=== PATIENT | male | born 1950 | race Caucasian/White ===

== ENCOUNTER 2020-04-10 16:10 | Emergency (ER) | payer MEDICARE, OTHER ==
--- NOTE | 2020-04-10 16:35 | ED Physician Documentation ---
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 But after lunch today, the says about an hour ago he became acutely dizzy. He has difficulty describing the dizziness. He says he had to get down on the ground and became very nauseous with it. That said he did not think it felt like a spinning sensation, nor did he feel off balance. More than anything else he said it was a little bit lightheaded but otherwise he was unable to describe it. At this point he is feeling mostly better, not dizzy. He still does not feel quite right so but has difficulty describing what that means. There is a question about whether his speech is normal, but the feels his speech is is at his baseline. He says that his speech is odd because he has lived in multiple foreign countries and picked up an accent combined with the [place]. Review of Systems Ten Systems: 10 systems reviewed and negative Constitutional: reports: Reviewed and negative Nose: reports: Reviewed and negative Throat: reports: Reviewed and negative Cardiac: reports: Reviewed and negative PD PAST MEDICAL HISTORY - Past Medical History Cardiovascular: None Respiratory: None Endocrine/Autoimmune: None GI: None : None HEENT: None Psych: None Musculoskeletal: None Derm: None - Past Surgical History General: Appendectomy Ortho: Other - Present Medications Home Medications: Ambulatory Orders Medication Instructions Recorded Confirmed Aspirin [Aspir-Low] 81 mg PO DAILY 08/26/15 08/29/15 Multivit-Min/Iron Fum/Folic AC 1 cap PO DAILY 08/26/15 08/29/15 [Dgzgz-Hcfgyug-Nuqyzicv Tablet] - Allergies Allergies/Adverse Reactions: Allergies Allergy/AdvReac Type Severity Reaction Status Date / Time No Known Drug Allergies Allergy Verified 08/26/15 13:53 PD ED PE NORMAL - Vitals Vital signs reviewed: Yes - General General: Alert and oriented X 3, No acute distress, Other (Slightly slow stuttering speech with an accent but no word finding difficulties or clear dysarthria.) - HEENT HEENT: PERRL, EOMI - Neck Neck: Supple, no meningeal sign, No bony TTP - Cardiac Cardiac: RRR, No murmur - Respiratory Respiratory: No respiratory distress, Clear bilaterally - Abdomen Abdomen: Normal bowel sounds, Soft, Non tender - Back Back: No CVA TTP, No spinal TTP - Neuro Neuro: Alert and oriented X 3, No motor deficit, No sensory deficit, Normal speech - Psych Psych: Normal mood, Normal affect NIHSS - Time Time: 16:30 - Level of Consciousness Level of consciousness: (0) Alert, Keenly responsive LOC Questions: (0) Answers both Q's correct LOC Commands: (0) Performs both correctly - Gaze Best Gaze: (0) Normal - Visual Visual: (0) No loss - Facial Palsy Facial Palsy: (0) Normal, symmetrical movement - Motor Arms (both separate) Motor Arm (right): (0) No drift Motor Arm (left): (0) No drift - Motor Legs (both separate) Motor Leg (right): (0) No drift Motor Leg (left): (0) No drift - Limb Ataxia Limb Ataxia: (0) Absent - Sensory Sensory: (0) Normal - Best Language Best Language: (0) No aphasia - Dysarthria Dysarthria: (0) Normal - Extinction and Inattention (formally neg Extinction and inattention: (0) No abnormality - Total Score/Results Total Score/Result: 0 Results - Vitals Vitals: Vital Signs - 24 hr 04/10/20 04/10/20 04/10/20 16:20 17:01 17:37 Temperature 36.8 C 36.7 C Heart Rate 87 86 65 Respiratory 15 16 17 Rate Blood Pressure 205/120 H 175/100 H 153/97 H O2 Saturation 100 100 100 04/10/20 18:00 Temperature Heart Rate 64 Respiratory 16 Rate Blood Pressure 147/99 H O2 Saturation 99 Oxygen O2 Source Room air - EKG (time done) 1627 Rate: Rate (enter#) (80) Rhythm: NSR [place]: Normal Intervals: Normal MD QRS: Normal Ischemia: Non specific changes Computer interpretation: Agree with computer - Labs Labs: Laboratory Tests 04/10/20 04/10/20 04/10/20 16:22 16:22 16:22 WBC 6.2 RBC 5.04 Hgb 15.5 Hct 46.6 MCV 92.5 MCH 30.8 MCHC 33.3 RDW 12.0 Plt Count 156 MPV 11.3 Neut # (Auto) 4.4 Lymph # (Auto) 1.1 L [place] # (Auto) 0.6 Eos # (Auto) 0.1 Baso # (Auto) 0.0 Absolute Nucleated RBC 0.00 Nucleated RBC % 0.0 PT 12.6 INR 1.1 Sodium 137 Potassium 3.8 Chloride 98 L Carbon Dioxide 29 Anion Gap 10.0 BUN 17 Creatinine 1.0 Estimated GFR (MDRD) 74 L Glucose 113 H Calcium 9.1 Magnesium 2.0 PD MEDICAL DECISION MAKING - ED course ED course: 69-year-old gentleman with [place]'s chorea presents with an acute dizzy episode that is hard to classify as vertigo or disequilibrium. He felt better without specific treatments. CTA of the head and neck were negative. Labs were unremarkable. He drank water here without nausea. Ambulated without difficulty or dizziness. [place] back to his baseline. Departure - Departure Disposition: Home, Self Care Clinical Impression: Dizziness Condition: Good Record reviewed to determine appropriate education?: Yes Instructions: ED Dizziness UKO Comments: The cause of the dizzy episode you had this afternoon is not completely clear, that said diagnostic testing including CT angiography of the head and neck and lab work were normal. Thankfully you are feeling better without specific treatment. Return if worse. Follow-up with your new primary care provider next week as scheduled.
[2020-04-10 16:43] LABS: BASOPHILS % (AUTO) 0.6 %; EOSINOPHILS # (AUTO) 0.1 10^3/uL (0.0-0.7); HGB - HEMOGLOBIN 15.5 g/dL (14.0-18.0); LYMPHOCYTES # (AUTO) 1.1 10^3/uL (1.5-3.5); LYMPHOCYTES % (AUTO) 17.2 %; MEAN CORPUSCULAR HEMOGLOBIN 30.8 pg (27.0-31.0); MEAN CORPUSCULAR HGB CONC 33.3 g/dL (32.0-36.0); MEAN CORPUSCULAR VOLUME 92.5 fL (80.0-94.0); MEAN PLATELET VOLUME 11.3 fL (7.4-11.4); MONOCYTES # (AUTO) 0.6 10^3/uL (0.0-1.0); MONOCYTES % (AUTO) 9.4 %; NEUTROPHILS # (AUTO) 4.4 10^3/uL (1.5-6.6); NEUTROPHILS % (AUTO) 71.6 %; PLT - PLATELET COUNT 156 10^3/uL (130-450); RED BLOOD COUNT 5.04 10^6/uL (4.70-6.10); WHITE BLOOD COUNT 6.2 x10^3/uL (4.8-10.8)
[2020-04-10] MEDS ORDERED: IOVERSOL 320 100 ML VIAL IVP ONE ×2 (16:49→17:17)
[2020-04-10 16:55] LABS: CALCIUM 9.1 mg/dL (8.5-10.3); INR 1.1 (0.8-1.2); PT - PROTHROMBIN TIME 12.6 secs (9.9-12.6)
--- NOTE | 2020-04-10 17:42 | CT Report ---
PROCEDURE: ANGIO HEAD W/WO INDICATIONS: vertigo CONTRAST: IV CONTRAST: Optiray 320 ml: 80 PO CONTRAST: *NO PO CONTRAST TECHNIQUE: Precontrast 4.5 mm thick angled axial sections acquired from the foramen magnum to the vertex. Afte r the administration of intravenous contrast, 1 mm thick sections acquired through the [place] of [place] is. Postcontrast 4.5 mm thick sections then re-acquired from the foramen magnum to the vertex. 3-di mensional barlsty-ytwxvmicc-fpcjqwmyom (MIP) and/or volume rendering reformats were acquired of the c entral intracranial vasculature. For radiation dose reduction, the following was used: automated ex posure control, adjustment of mA and/or kV according to patient size. COMPARISON: None FINDINGS: Image quality: Streak artifact at the skull bases.. Anterior circulation: Intracranial internal carotid arteries are normal in size and flow. The flow within the paired anterior cerebral arteries is normal and symmetric. The flow within the middle cer ebral arteries is normal and symmetric. The anterior communicating artery is seen. No aneurysms are seen. Posterior circulation: Visualized portions of the vertebral arteries demonstrate normal flow without evidence of high-grade stenosis, occlusion, or aneurysm. Incidental note of a diminutive right verte bral artery with the majority of the basilar artery supplied by the dominant left vertebral artery. I ncidental note of persistent circulation of the posterior cerebral arteries. Flow within the po sterior cerebral arteries is normal and symmetric. No aneurysms are seen. CSF spaces: Ventricles are normal in size and shape. Basal cisterns are patent. No extra-axial flu id collections. Brain: No midline shift. No intracranial bleeds or masses. [place]-white matter interface appears int act. Skull and face: Calvarium and facial bones appear intact, without suspicious lesions. Sinuses: Visualized sinuses and mastoids are clear. IMPRESSION: No acute intracranial abnormality. No significant stenosis, occlusion, aneurysm, or other vascular abnormality within the brain. Reviewed by: Eris Edge DO on 04/10/2020 4:41 PM [facility] Approved by: Eris Edge DO on 04/10/2020 4:41 PM [facility] Station ID: [id number]
--- NOTE | 2020-04-10 17:52 | CT Report ---
PROCEDURE: ANGIO NECK W INDICATIONS: vertigo CONTRAST: IV CONTRAST: Optiray 320 ml: 80 PO CONTRAST: *NO PO CONTRAST TECHNIQUE: After the administration of intravenous contrast, 1.5 mm axial sections acquired from the aortic arch to the [place] of [place]. Coronal 3-D maximum intensity projection (MIP) and/or volume rendering ref ormats were then performed. For radiation dose reduction, the following was used: automated exposur e control, adjustment of mA and/or kV according to patient size. COMPARISON: None. FINDINGS: Image quality: Excellent. Carotid system: The great vessels demonstrate a conventional anatomy as they arise from the aortic a [facility]. The origins of the common carotid arteries appear patent. The common carotid arteries demonstr ate normal calibers. The bifurcation regions appear normal bilaterally. The internal carotid arterie s demonstrate normal caliber and course. The carotid arteries are patent throughout their course wit hout evidence of high-grade stenosis, occlusion, aneurysm, or dissection. Posterior circulation: The origins of the vertebral arteries appear patent. Incidental note of an an terior course of the right vertebral artery with extension into the vertebral foramen at the level of C6. The right vertebral artery is diminutive in appearance. The left vertebral artery is dominant. T here is a normal basilar artery. Soft tissues: Visualized neck soft tissues demonstrate no suspicious abnormalities. The thyroid gla nd is normal in size. Bones: No suspicious bony lesions. Multilevel degenerative changes of the cervical spine. There is at least moderate intervertebral disc space loss at C4-C5, C5-C6, C6-C7, and C7-T1. No significant jose ny spinal canal stenosis. Multiple levels of mild to moderate neural foraminal stenosis. No acute fra cture. There is mild reversal of the normal cervical lordosis centered at C4-C5. IMPRESSION: No evidence of clinically significant stenosis, occlusion, dissection, or aneurysm. The estimate of stenosis included in the report of the imaging study was calculated using the NASCET method Reviewed by: Eris Edge DO on 04/10/2020 4:51 PM [facility] Approved by: Eris Edge DO on 04/10/2020 4:51 PM [facility] Station ID: [id number]
[2020-04-10 18:22] VITALS: BP 165/100
== END 2020-04-10 18:25 | disposition home or self-care (01) ==
LOC: ED 16:10
DX: R42 Dizziness and giddiness (principal); G10 Huntington's disease; Z79.82 Long term (current) use of aspirin
CPT/HCPCS: 36415; 70496; 70498; 80048; 83735; 85025; 85610; 93005; 99283; 99284; Q9967

== ENCOUNTER 2021-08-01 10:53 | Outpatient (CLI) | payer MEDICARE ==
[2021-08-01 14:13] LABS: BASOPHILS % (AUTO) 0.7 %; EOSINOPHILS % (AUTO) 0.7 %; HGB - HEMOGLOBIN 15.4 g/dL (14.0-18.0); LYMPHOCYTES # (AUTO) 1.2 10^3/uL (1.5-3.5); LYMPHOCYTES % (AUTO) 21.6 %; MEAN CORPUSCULAR HGB CONC 33.5 g/dL (32.0-36.0); MEAN CORPUSCULAR VOLUME 92.6 fL (80.0-94.0); MEAN PLATELET VOLUME 11.8 fL (7.4-11.4); MONOCYTES # (AUTO) 0.5 10^3/uL (0.0-1.0); MONOCYTES % (AUTO) 9.1 %; NEUTROPHILS # (AUTO) 3.7 10^3/uL (1.5-6.6); NEUTROPHILS % (AUTO) 67.7 %; PLT - PLATELET COUNT 191 10^3/uL (130-450); RED BLOOD COUNT 4.97 10^6/uL (4.70-6.10); RED CELL DISTRIBUTION WIDTH 12.1 % (12.0-15.0); WHITE BLOOD COUNT 5.5 x10^3/uL (4.8-10.8)
[2021-08-01 14:33] LABS: ALBUMIN 4.7 g/dL (3.2-5.5); ALBUMIN/GLOBULIN RATIO 1.5 (1.0-2.2); BILIRUBIN,TOTAL 1.2 mg/dL (0.2-1.0); CALCIUM 9.7 mg/dL (8.5-10.3); CREATININE 1.1 mg/dL (0.6-1.2); POTASSIUM 4.2 mmol/L (3.5-5.0); TOTAL PROTEIN 7.9 g/dL (6.7-8.2)
[2021-08-01 14:47] LABS: THYROID STIMULATING HORMONE 0.52 uIU/mL (0.34-5.60)
== END 2021-08-01 10:54 | disposition home or self-care (01) ==
LOC: LAB.S 10:53
PROVIDERS: ATTEND Nurse Practitioner Family
DX: I10 Essential (primary) hypertension (principal)
CPT/HCPCS: 36415; 80053; 84443; 85025

== ENCOUNTER 2021-08-13 14:58 | Emergency (ER) | payer MEDICARE ==
[2021-08-13] MEDS ORDERED: SODIUM CHLORIDE 0.9% 1,000 ML IV STA (15:18)
--- NOTE | 2021-08-13 15:25 | ED Physician Documentation ---
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 He is now coming to the emergency department with a chief complaint of a weeks long history of feeling lightheaded and dizzy and weight loss. Review of Systems Constitutional: reports: Weight Loss. denies: Fever Eyes: denies: Decreased vision Ears: denies: Ear pain Nose: denies: Congestion Throat: denies: Sore throat Cardiac: denies: Chest pain / pressure, Palpitations Respiratory: denies: Dyspnea, Cough GI: reports: Constipation. denies: Abdominal Pain, Nausea, Vomiting, Diarrhea : denies: Dysuria, Frequency Skin: denies: Rash Musculoskeletal: denies: Neck pain, Back pain, Extremity pain Neurologic: reports: Generalized weakness. denies: Focal weakness, Numbness, Difficulty speaking, Confused, Altered mental status, Headache, Head injury, LOC PD PAST MEDICAL HISTORY - Past Medical History Cardiovascular: None Respiratory: None Endocrine/Autoimmune: None GI: None : None HEENT: None Psych: None Musculoskeletal: None Derm: None - Past Surgical History Past Surgical History: Yes General: Appendectomy Ortho: Other - Present Medications Home Medications: Ambulatory Orders Medication Instructions Recorded Confirmed Aspirin [Aspir-Low] 81 mg PO DAILY 08/26/15 08/29/15 Multivit-Min/Iron Fum/Folic AC 1 cap PO DAILY 08/26/15 08/29/15 [Faiyw-Ehrjmgg-Xrsodikm Tablet] - Allergies Allergies/Adverse Reactions: Allergies Allergy/AdvReac Type Severity Reaction Status Date / Time No Known Drug Allergies Allergy Verified 08/13/21 15:14 - Social History Does the pt smoke?: No Smoking Status: Never smoker Does the pt drink ETOH?: No Does the pt have substance abuse?: No - Immunizations Immunizations are current?: Yes PD ED PE NORMAL - Vitals Vital signs reviewed: Yes (Hypertensive) - General General: Alert and oriented X 3, No acute distress, Well developed/nourished - HEENT HEENT: Atraumatic, PERRL, EOMI, Other (Dry mucous membranes) - Neck Neck: Supple, no meningeal sign, No bony TTP - Cardiac Cardiac: RRR, No murmur - Respiratory Respiratory: No respiratory distress, Clear bilaterally - Abdomen Abdomen: Soft, Non tender - Back Back: No CVA TTP, No spinal TTP - Derm Derm: Normal color, Warm and dry, No rash - Extremities Extremities: No deformity, No edema - Neuro Neuro: Alert and oriented X 3, 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, No motor deficit, No sensory deficit, Normal speech, Other (Choreiform movements are observed) Eye Opening: Spontaneous Motor: Obeys Commands Verbal: Oriented GCS Score: 15 - Psych Psych: Normal mood, Normal affect Results - Vitals Vitals: Oxygen O2 Source Room air - Labs Labs: Laboratory Tests 08/13/21 08/13/21 15:25 15:25 WBC 5.6 RBC 4.45 L Hgb 13.9 L Hct 40.5 L MCV 91.0 MCH 31.2 H MCHC 34.3 RDW 11.9 L Plt Count 166 MPV 10.4 Neut # (Auto) 4.4 Lymph # (Auto) 0.7 L [place] # (Auto) 0.5 Eos # (Auto) 0.0 Baso # (Auto) 0.0 Absolute Nucleated RBC 0.00 Nucleated RBC % 0.0 Sodium 134 L Potassium 4.2 Chloride 100 L Carbon Dioxide 28 Anion Gap 6.0 BUN 15 Creatinine 1.0 Estimated GFR (MDRD) 74 L Glucose 108 H Calcium 9.3 Total Bilirubin 0.5 AST 14 ALT 12 Alkaline Phosphatase 47 Total Protein 7.0 Albumin 4.3 Globulin 2.7 Albumin/Globulin Ratio 1.6 Lipase 57 H Procedures - IVC sono (time) 1520 Bedside IVC sono: IVC measures (cm) (0.82), IVC collapsed c insp (cm) (complete), Dehydration (est 2 liter deficit) PD MEDICAL DECISION MAKING - ED course Complexity details: reviewed old records, reviewed results, re-evaluated patient, considered differential, d/w patient, d/w family ED course: 70-year-old male with late onset [place]'s chorea has recently been diagnosed with constipation and this has been treated he now is presenting to the emergency department with lightheadedness and dizziness and he is found to be dehydrated on interrogation of the inferior vena cava. We are placing an intravenous line and giving the patient some saline. We will check his electrolytes and blood counts. Marked improvement after treatment. Departure - Departure Disposition: 01 Home, Self Care Clinical Impression: Dehydration Instructions: ED Dehydration Follow-Up: LISSA BUCHANAN ARNP [Primary Care Provider] - Discharge Date/Time: 08/13/21 16:19
[2021-08-13 15:30] LABS: BASOPHILS % (AUTO) 0.5 %; EOSINOPHILS % (AUTO) 0.2 %; HCT - HEMATOCRIT 40.5 % (42.0-52.0); HGB - HEMOGLOBIN 13.9 g/dL (14.0-18.0); LYMPHOCYTES # (AUTO) 0.7 10^3/uL (1.5-3.5); LYMPHOCYTES % (AUTO) 12.9 %; MEAN CORPUSCULAR HEMOGLOBIN 31.2 pg (27.0-31.0); MEAN CORPUSCULAR HGB CONC 34.3 g/dL (32.0-36.0); MEAN PLATELET VOLUME 10.4 fL (7.4-11.4); MONOCYTES # (AUTO) 0.5 10^3/uL (0.0-1.0); MONOCYTES % (AUTO) 8.2 %; NEUTROPHILS # (AUTO) 4.4 10^3/uL (1.5-6.6); NEUTROPHILS % (AUTO) 78.2 %; PLT - PLATELET COUNT 166 10^3/uL (130-450); RED BLOOD COUNT 4.45 10^6/uL (4.70-6.10); RED CELL DISTRIBUTION WIDTH 11.9 % (12.0-15.0); WHITE BLOOD COUNT 5.6 x10^3/uL (4.8-10.8)
[2021-08-13 15:43] LABS: ALBUMIN 4.3 g/dL (3.2-5.5); ALBUMIN/GLOBULIN RATIO 1.6 (1.0-2.2); BILIRUBIN,TOTAL 0.5 mg/dL (0.2-1.0); CALCIUM 9.3 mg/dL (8.5-10.3); POTASSIUM 4.2 mmol/L (3.5-5.0)
[2021-08-13 16:19] VITALS: BP 109/76
== END 2021-08-13 16:19 | disposition home or self-care (01) ==
LOC: ED 14:58
DX: E86.0 Dehydration (principal)
CPT/HCPCS: 36415; 80053; 83690; 85025; 99283

== ENCOUNTER 2021-08-17 03:19 | Emergency (ER) | payer MEDICARE ==
[2021-08-17 04:24] LABS: BILIRUBIN,URINE NEGATIVE (NEGATIVE); CLARITY,URINE CLEAR (CLEAR); GLUCOSE, URINE (UA) NEGATIVE (NEGATIVE); KETONES,URINE (UA) NEGATIVE (NEGATIVE); LEUKOCYTE ESTERASE, URINE NEGATIVE (NEGATIVE); NITRITE,URINE NEGATIVE (NEGATIVE); OCCULT BLOOD,URINE SMALL (NEGATIVE); PROTEIN,URINE NEGATIVE (NEGATIVE); UROBILINOGEN,URINE 0.2 (NORMAL) E.U./dL (NORMAL)
[2021-08-17 04:30] LABS: BACTERIA,URINE None Seen /HPF (None Seen); RBC,URINE 0-5 /HPF (0-5); SQUAMOUS EPITHELIAL CELL,UR NONE SEEN (<= Few); WBC,URINE 0-3 /HPF (0-3)
--- NOTE | 2021-08-17 04:54 | ED Physician Documentation ---
PD HPI MALE - Stated complaint Stated Complaint: MALE - Chief complaint Chief Complaint: Abd Pain - History obtained from History obtained from: Patient, Family - History of Present Illness Timing - onset: Today Timing - duration: Hours Timing - details: Abrupt onset, Still present Associated symptoms: Unable to urinate Similar symptoms before: Has not had sx before Recently seen: Emergency Dept - Additional information Additional information: Matias Haney is a 70-year-old male who has late onset Joseph's chorea and he was recently into the emergency department with complaints of lightheadedness and dizziness and he was found to be dehydrated on interrogation of his inferior vena cava and he was administered saline. He had marked improvement. He has been hydrating almost continuously on this morning he was unable to void. He came into the emergency department with this chief complaint. Despite hydration no urine came out. He did not have a chief complaint of pain. Review of Systems Constitutional: denies: Fever Ears: denies: Ear pain Nose: denies: Congestion Throat: denies: Sore throat Respiratory: denies: Cough GI: denies: Abdominal Pain, Nausea, Vomiting, Constipation, Diarrhea : reports: Unable to Void. denies: Dysuria, Frequency Skin: denies: Rash Musculoskeletal: denies: Neck pain, Back pain, Extremity pain PD PAST MEDICAL HISTORY - Past Medical History Cardiovascular: None Respiratory: None Endocrine/Autoimmune: None GI: None : None HEENT: None Psych: None Musculoskeletal: None Derm: None - Past Surgical History Past Surgical History: Yes General: Appendectomy Ortho: Other - Present Medications Home Medications: Ambulatory Orders Medication Instructions Recorded Confirmed Aspirin [Aspir-Low] 81 mg PO DAILY 08/26/15 08/29/15 Multivit-Min/Iron Fum/Folic AC 1 cap PO DAILY 08/26/15 08/29/15 [Swcol-Hbluziz-Jpdgzhvk Tablet] - Allergies Allergies/Adverse Reactions: Allergies Allergy/AdvReac Type Severity Reaction Status Date / Time No Known Drug Allergies Allergy Verified 08/13/21 15:14 - Social History Does the pt smoke?: No Smoking Status: Never smoker Does the pt drink ETOH?: No Does the pt have substance abuse?: No - Immunizations Immunizations are current?: Yes PD ED PE NORMAL - Vitals Vital signs reviewed: Yes (Hypertensive) - General General: Alert and oriented X 3, No acute distress, Well developed/nourished - HEENT HEENT: Atraumatic, PERRL, EOMI - Neck Neck: Supple, no meningeal sign - Respiratory Respiratory: No respiratory distress - Abdomen Abdomen: Normal bowel sounds, Soft, Non tender, Other (The bladder is firm and palpable suprapubic without significant tenderness) - Back Back: No CVA TTP, No spinal TTP - Derm Derm: Normal color, Warm and dry, No rash - Extremities Extremities: No deformity, No edema - Neuro Neuro: Alert and oriented X 3, 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, No motor deficit, No sensory deficit, Normal speech Motor: Obeys Commands Verbal: Oriented - Psych Psych: Normal mood, Normal affect Results - Vitals Vitals: Vital Signs - 24 hr 08/17/21 08/17/21 03:35 04:57 Temperature 36.6 C 36.7 C Heart Rate 54 L 79 Respiratory 19 17 Rate Blood Pressure 143/77 H 155/100 H O2 Saturation 98 98 Oxygen O2 Source Room air - Labs Labs: Laboratory Tests 08/17/21 04:15 Urine Color YELLOW Urine Clarity CLEAR Urine pH 6.0 Ur Specific [place] 1.010 Urine Protein NEGATIVE Urine Glucose (UA) NEGATIVE Urine Ketones NEGATIVE Urine Occult Blood SMALL H Urine Nitrite NEGATIVE Urine Bilirubin NEGATIVE Urine Urobilinogen 0.2 (NORMAL) Ur Leukocyte Esterase NEGATIVE Urine RBC 0-5 Urine WBC 0-3 Ur Squamous Epith Cells NONE SEEN Urine Bacteria None Seen Ur Microscopic Review INDICATED Urine Culture Comments NOT INDICATED Procedures - IVC sono (time) 0348 Bedside IVC sono: IVC measures (cm) (1.94), Euvolemia PD MEDICAL DECISION MAKING - ED course Complexity details: reviewed results, re-evaluated patient, considered differential, d/w patient ED course: 70-year-old male with acute urinary retention of only 700 mL. He is not on any new medication. He did not have any significant pain associated with this and has a negative urinalysis. I am uncertain why the patient was unable to void we placed Lance catheter and emptied the bladder. I suspect the patient will be able to void without difficulty and I have indicated to the patient that if he has difficulty again he will need to return to leave the catheter in place. Departure - Departure Disposition: 01 Home, Self Care Clinical Impression: Acute urinary retention Condition: Stable Instructions: ED Retention Urinary Male Follow-Up: LISSA BUCHANAN ARNP [Physician No Access] - Comments: Matias, this morning you had about 700ml in your bladder and we have drained the bladder. We are expecting that you will be able to urinate normally this morning without the catheter. There is a chance that you will not be able to and if this happens return to the ED and we will have to leave the catheter in place for about a week. It looks like you are doing a good job at hydrating and my recommendation is to stop drinking water at about 9pm so that you are not up in the middle of the night to urinate. Discharge Date/Time: 08/17/21 05:12
[2021-08-17 05:04] VITALS: BP 155/100
== END 2021-08-17 05:12 | disposition home or self-care (01) ==
LOC: ED 03:19
DX: R33.9 Retention of urine, unspecified (principal)
CPT/HCPCS: 81001; 81003; 87086; 99282; 99283

== ENCOUNTER 2023-10-02 13:49 | Outpatient (CLI) | payer MEDICARE | END 2023-10-02 23:59 | disposition critical access hospital (66) | LOC: EMS 13:49 | DX: R33.9 Retention of urine, unspecified (principal) | CPT/HCPCS: A0425; A0429 ==

== ENCOUNTER 2023-10-02 14:27 | Emergency (ER) | payer MEDICARE ==
--- NOTE | 2023-10-02 14:37 | ED Physician Documentation ---
PD HPI MALE - Stated complaint Stated Complaint: - Chief complaint Chief Complaint: Abd Pain - History obtained from History obtained from: Patient - History of Present Illness Timing - onset: How many days ago (The patient has noticed hesitancy with urine and small amounts out over several days at least. Weak stream for longer term. Now today being unable to urinate and having feeling of bladder fullness and discomfort. No hematuria nor dysuria.) Timing - details: Gradual onset, Still present (worse the past day in particular.), Waxing and waning Associated symptoms: Urinary frequency, Unable to urinate. No: Dysuria, Hematuria, Back pain PD HPI MALE CONTRIB FACTORS: Other (He denies any recent change in medicines. No recent cold or flu. No jpyo-[id number] cough medicines etc. Has not had hematuria nor dysuria.) Similar symptoms before: No diagnosis (did have episode of urinary retention last year treated short term with catheter.) PD PAST MEDICAL HISTORY - Past Medical History Past Medical History: Yes Cardiovascular: Hypertension Respiratory: None Endocrine/Autoimmune: None GI: None : None HEENT: None Psych: None Musculoskeletal: None Derm: None Other Past Medical History: [place] - Past Surgical History Past Surgical History: No General: Appendectomy Ortho: Other - Present Medications Home Medications: Ambulatory Orders Medication Instructions Recorded Confirmed Aspirin [Aspir-Low] 81 mg PO DAILY 08/26/15 08/29/15 Multivit-Min/Iron Fum/Folic AC 1 cap PO DAILY 08/26/15 08/29/15 [Hdswx-Alzdeku-Rwccjxgw Tablet] Tamsulosin [Flomax] 0.4 mg PO DAILY #20 cap 10/02/23 - Allergies Allergies/Adverse Reactions: Allergies Allergy/AdvReac Type Severity Reaction Status Date / Time No Known Drug Allergies Allergy Verified 10/02/23 14:36 - Social History Does the pt smoke?: No Smoking Status: Never smoker Does the pt drink ETOH?: No Does the pt have substance abuse?: No - Immunizations Immunizations are current?: Yes - POLST Patient has POLST: No PD ED PE NORMAL - Vitals Vital signs reviewed: Yes - General General: Alert and oriented X 3, Well developed/nourished - Abdomen Abdomen: Normal bowel sounds, Soft, Other (fullness in suprapubic area, tender. Upper abd not tender. ) - Derm Derm: Normal color, Warm and dry Results - Vitals Vitals: Vital Signs - 24 hr 10/02/23 14:30 Temperature 37.2 C Heart Rate 81 Respiratory 23 Rate Blood Pressure 130/88 H O2 Saturation 98 Oxygen O2 Source Room air - Labs Labs: Laboratory Tests 10/02/23 15:19 Urine Color YELLOW Urine Clarity CLEAR Urine pH 7.0 Ur Specific [place] 1.010 Urine Protein NEGATIVE Urine Glucose (UA) NEGATIVE Urine Ketones NEGATIVE Urine Occult Blood SMALL H Urine Nitrite NEGATIVE Urine Bilirubin NEGATIVE Urine Urobilinogen 0.2 (NORMAL) Ur Leukocyte Esterase NEGATIVE Urine RBC 0-5 Urine WBC 0-3 Ur Squamous Epith Cells NONE SEEN Urine Bacteria None Seen Ur Microscopic Review INDICATED Urine Culture Comments NOT INDICATED PD Medical Decision Making - ED course Complexity details: reviewed results (The urine is clear with only trace of blood and no signs of infection. He did have a liter of fluid in the bladder upon placement of a Lance catheter. I would presume he has chronic urinary retention with this amount given his moderate level of discomfort with that amount. ), considered differential (Patient with difficulty urination for the last day or 2 with having to "force it out". Unable to urinate the last 5 or 6 hours and feeling bladder fullness and discomfort. No dysuria or prior. No change in medicines. No illness otherwise.), d/w patient ED course: I did discuss with the patient and his grandson I believe the need for keeping the catheter in in order to have good bladder drainage and regain muscle tone in the bladder muscles as well as the ability to impact on prostate enlargement w ith some antiprostate medication. They should call the urology office for follow-up appointment for next week at which point they can discuss removing of the catheter versus bladder training or other courses. Departure - Departure Disposition: 01 Home, Self Care Clinical Impression: Acute on chronic urinary retention Condition: Stable Record reviewed to determine appropriate education?: Yes Instructions: ED Catheter Care Lance, ED Retention Urinary Male Follow-Up: Fran Sanches MD [Provider Admit Priv/Credential] - Prescriptions: Tamsulosin [Flomax] 0.4 mg PO DAILY #20 cap Comments: Given the amount of urine in her bladder at about 1000 mL I would anticipate that you have had some moderate urine retention exacerbated now. With that much urine in the bladder, it is likely you have had some overstretching of the muscles in the do need time to come more into tone and not be overstretched. As such we typically would leave the catheter in place for a week or so to allow the bladder to on stretch and the muscles develop a better tone to more successfully be able to urinate when the catheter is out. In addition presuming the prostate is being part of the issue, I would start a prostate shrinking medicine daily for the next few weeks. I provided the urologist office phone number. Call them today or tomorrow to set an appointment for presumably next week at which point we will recheck and start a plan for better bladder drainage and decide on removing the catheter etc. There is no signs of infection to your urine. Continue your other usual medicines. Forms: PCP List
[2023-10-02] MEDS: LIDOCAINE 2% URO-JET 5 ML SYRINGE UR STA (15:11)
[2023-10-02 15:45] LABS: BILIRUBIN,URINE NEGATIVE (NEGATIVE); GLUCOSE, URINE (UA) NEGATIVE (NEGATIVE); KETONES,URINE (UA) NEGATIVE (NEGATIVE); LEUKOCYTE ESTERASE, URINE NEGATIVE (NEGATIVE); NITRITE,URINE NEGATIVE (NEGATIVE); OCCULT BLOOD,URINE SMALL (NEGATIVE); PROTEIN,URINE NEGATIVE (NEGATIVE); UROBILINOGEN,URINE 0.2 (NORMAL) E.U./dL (NORMAL)
[2023-10-02 15:53] LABS: CLARITY,URINE CLEAR (CLEAR)
[2023-10-02 16:16] LABS: RBC,URINE 0-5 /HPF (0-5); WBC,URINE 0-3 /HPF (0-3)
[2023-10-02 16:17] LABS: BACTERIA,URINE None Seen /HPF (None Seen); SQUAMOUS EPITHELIAL CELL,UR NONE SEEN (<= Few)
[2023-10-02] MEDS: TAMSULOSIN 0.4 MG CAPSULE PO STA (16:25)
[2023-10-02 16:37] VITALS: BP 126/105; O2SAT 100
== END 2023-10-02 16:40 | disposition home or self-care (01) ==
LOC: EDUNIT# → ED 14:27
DX: R33.9 Retention of urine, unspecified (principal)
CPT/HCPCS: 51702; 51798; 81001; 99284; A9270; 81003; 87086

== ENCOUNTER 2023-10-12 15:28 | Emergency (ER) | payer MEDICARE ==
--- NOTE | 2023-10-12 15:45 | ED Physician Documentation ---
PD HPI ABD PAIN - Stated complaint Stated Complaint: GI - Chief complaint Chief Complaint: Abd Pain - History obtained from History obtained from: Patient - History of Present Illness Timing - onset: Today Timing - details: Gradual onset (he had feeling of rectal fullness and will use dulcolax suppos to stimulate stool out. Does this usually daily, due to poor pelvic muscle strength. id not get stool out today with that, and feeling uncomfortable at rectal area. Here for assistance.) Quality: Cramping, Aching PD PAST MEDICAL HISTORY - Past Medical History Past Medical History: Yes Cardiovascular: Hypertension Respiratory: None Endocrine/Autoimmune: None GI: None : None HEENT: None Psych: None Musculoskeletal: None Derm: None - Past Surgical History Past Surgical History: Yes General: Appendectomy Ortho: Other - Present Medications Home Medications: Ambulatory Orders Medication Instructions Recorded Confirmed Aspirin [Aspir-Low] 81 mg PO DAILY 08/26/15 10/12/23 Multivit-Min/Iron Fum/Folic AC 1 cap PO DAILY 08/26/15 10/12/23 [Kpnnk-Kbwdwwv-Mhjfnxnn Tablet] Tamsulosin [Flomax] 0.4 mg PO DAILY #20 cap 10/02/23 10/12/23 Docusate Sodium 100Mg Capsule 100 mg PO DAILY #20 cap 10/12/23 [Colace 100Mg Capsule] Tetrabenazine [Xenazine] 1 tab PO DAILY 10/12/23 10/12/23 - Allergies Allergies/Adverse Reactions: Allergies Allergy/AdvReac Type Severity Reaction Status Date / Time No Known Drug Allergies Allergy Verified 10/12/23 15:38 - Social History Does the pt smoke?: No Smoking Status: Never smoker Does the pt drink ETOH?: No Does the pt have substance abuse?: No - Immunizations Immunizations are current?: Yes - POLST Patient has POLST: No PD ED PE NORMAL - General General: Alert and oriented X 3, Well developed/nourished - Rectal Rectal: Other (soft stool in vault. not feeling impacted. lower muscle tone. ) - Derm Derm: Normal color, Warm and dry - Neuro Neuro: Alert and oriented X 3 Results - Vitals Vitals: Oxygen O2 Source Room air PD Medical Decision Making - ED course Complexity details: re-evaluated patient (no abd pain nore tenderness. Some stool in vault on exam but not impacted. Mainly needing stimulation to enhance peristalsis due to decreased msucle strength. Given enema with good stool output. Feeling better. No indication for testing/imaging. ), considered differential (he has poor rectal and pelvic muscle tone so needs daily dulcoax suppos to creat peristaltic movement. Could maybe benefit from stool softener too. He does fiber for bulk. Had fullness of rectum after the suppos. ), d/w patient Departure - Departure Disposition: Home, Self Care Clinical Impression: Obstipation, Rectal fullness due to feces Condition: Stable Record reviewed to determine appropriate education?: Yes Prescriptions: Docusate Sodium 100Mg Capsule [Colace 100Mg Capsule] 100 mg PO DAILY #20 cap Comments: Continue usual medications. You could try adding a docusate daily or every other day to see if it allows for this your stool that comes out more easily. However if the difficulty is the muscle tone at the rectum, then the continued use of the daily Dulcolax suppository may be the most successful as you are doing. Return as needed. Follow-up with urology this coming week as planned. Forms: PCP List Discharge Date/Time: 10/12/23 17:22
[2023-10-12] MEDS: SALINE ENEMA 133 ML BOTTLE RC STA (16:08)
[2023-10-12 17:33] VITALS: BP 134/84; O2SAT 100
== END 2023-10-12 17:22 | disposition home or self-care (01) ==
LOC: ED 15:28
DX: K59.00 Constipation, unspecified (principal); I10 Essential (primary) hypertension
CPT/HCPCS: 99283; A9270

== ENCOUNTER 2023-10-29 15:57 | Emergency (ER) | payer MEDICARE ==
[2023-10-29 16:26] VITALS: O2SAT 99
--- NOTE | 2023-10-29 17:20 | ED Physician Documentation ---
History of Present Illness - Stated complaint Stated Complaint: - Chief complaint Chief Complaint: Abd Pain - History obtained from History obtained from: Patient - Additonal information Additional information: Patient is a 72-year-old male past medical history of Parkinson's presents to the emergency department with constipation x 1 day. Patient was seen here on 10/11 for similar symptoms started on docusate suppositories. He notes this was working well until today when he could not have a bowel movement. Patient comes in with nurse and she notes he tried to have a bowel movement for 2 hours with no success. Patient denies any difficulty eating drinking nausea vomiting or abdominal pain. Patient also reporting decreased urination. He has had to be straight cathed twice this week last 2 weeks for urinary retention and has been started on Flomax. Patient notes he does not feel any dysuria no changes in color or foul-smelling urine today. PD PAST MEDICAL HISTORY - Past Medical History Past Medical History: Yes Cardiovascular: Hypertension Respiratory: None Endocrine/Autoimmune: None GI: None : None HEENT: None Psych: None Musculoskeletal: None Derm: None - Past Surgical History Past Surgical History: Yes General: Appendectomy Ortho: Other - Present Medications Home Medications: Ambulatory Orders Medication Instructions Recorded Confirmed Aspirin [Aspir-Low] 81 mg PO DAILY 08/26/15 10/12/23 Multivit-Min/Iron Fum/Folic AC 1 cap PO DAILY 08/26/15 10/12/23 [Tnasd-Rnvxzwj-Ximypzfp Tablet] Tamsulosin [Flomax] 0.4 mg PO DAILY #20 cap 10/02/23 10/12/23 Docusate Sodium 100Mg Capsule 100 mg PO DAILY #20 cap 10/12/23 [Colace 100Mg Capsule] Tetrabenazine [Xenazine] 1 tab PO DAILY 10/12/23 10/12/23 cephALEXin [Keflex] 500 mg PO BID 5 Days #10 cap 10/29/23 polyethylene glycoL 3350 [Miralax] 17 gm PO DAILY 10 Days packet 10/29/23 polyethylene glycoL 3350(BULK) 17 gm PO DAILY PRN #1 each 10/29/23 [Miralax] - Allergies Allergies/Adverse Reactions: Allergies Allergy/AdvReac Type Severity Reaction Status Date / Time No Known Drug Allergies Allergy Verified 10/29/23 16:46 - Social History Does the pt smoke?: No Smoking Status: Never smoker Does the pt drink ETOH?: No Does the pt have substance abuse?: No - Immunizations Immunizations are current?: Yes - POLST Patient has POLST: No PD ED PE NORMAL - Vitals Vital signs reviewed: Yes - General General: Alert and oriented X 3 - HEENT HEENT: Atraumatic - Neck Neck: Supple, no meningeal sign - Cardiac Cardiac: RRR, No murmur, No gallop, No rub - Respiratory Respiratory: No respiratory distress - Abdomen Abdomen: Normal bowel sounds, Soft, Non tender, Non distended, Other (No acute surgical abdomen) - Back Back: No CVA TTP - Derm Derm: Normal color, No rash - Extremities Extremities: No deformity Results - Vitals Vitals: Vital Signs - 24 hr 10/29/23 16:17 Temperature 36.8 C Heart Rate 118 H Respiratory 18 Rate Blood Pressure 167/119 H O2 Saturation 99 Oxygen O2 Source Room air - Labs Labs: Laboratory Tests 10/29/23 17:59 Urine Color LIGHT YELLOW Urine Clarity HAZY Urine pH 5.5 Ur Specific [place] <=1.005 Urine Protein NEGATIVE Urine Glucose (UA) NEGATIVE Urine Ketones NEGATIVE Urine Occult Blood MODERATE H Urine Nitrite NEGATIVE Urine Bilirubin NEGATIVE Urine Urobilinogen 0.2 (NORMAL) Ur Leukocyte Esterase SMALL H Urine RBC 6-10 H Urine WBC 11-25 H Ur Squamous Epith Cells NONE SEEN Urine Bacteria Rare Ur Microscopic Review INDICATED Urine Culture Comments INDICATED PD Medical Decision Making - ED course Complexity details: reviewed old records, reviewed results ED course: Patient is a 72-year-old male presenting to the emergency department with left distal ring finger laceration. Injury occurred when he was using a table saw shortly prior to arrival. He is on Xarelto for history of atrial fibrillation. Patient denies any numbness or tingling to the distal finger on examination. He has full range of motion at DIP and PIP joints. Good capillary refill strength intact 5 out of 5. Additional small abrasion noted to the distal phalanx of third finger no active bleeding on examination. X-ray obtained given irregular and depth noted to the wound. Patient's x-ray shows no signs of foreign body no signs of fracture to finger. See procedure note above. Patient received 7 sutures and small amount of Dermabond over area of abrasion with persistent bleeding. Patient tolerated this well he was splinted here in the emergency department. Patient instructed to have sutures removed in 14 days and to evaluate for any redness swelling warmth fevers discharge. Directed patient to evaluate for any numbness or tingling as well as this is a sign of injury to the tendon. Patient will leave the splint on and rewrap wound in 24 hours. Patient given numbers for orthopedics hand for follow-up as well as his PCP for suture removal and evaluation of good wound healing. Patient understands and is agreeable with this plan. Departure - Departure Disposition: 01 Home, Self Care Clinical Impression: UTI (urinary tract infection), Constipation, Acute UTI Condition: Good Instructions: ED UTI Cystitis Male Follow-Up: eLela Erwin ARNP [Primary Care Provider] - Comments: Workup here in the emergency department with reassuring symptoms most likely secondary to constipation continue with docusate and add on MiraLAX to help with bowel movements. Symptoms most likely secondary to weak muscles. Drink lots of fluids at home. Additionally you have signs of a UTI started on antibiotics as prescribed but follow-up with your urologist for further evaluation in the outpatient setting. Return to the emergency department with worsening abdominal pain back pain fevers nausea or vomiting. Forms: PCP List
[2023-10-29] MEDS: SOAP SUDS ENEMA 1 EACH RC ONE (18:03)
[2023-10-29 18:06] LABS: BILIRUBIN,URINE NEGATIVE (NEGATIVE); GLUCOSE, URINE (UA) NEGATIVE (NEGATIVE); KETONES,URINE (UA) NEGATIVE (NEGATIVE); LEUKOCYTE ESTERASE, URINE SMALL (NEGATIVE); NITRITE,URINE NEGATIVE (NEGATIVE); OCCULT BLOOD,URINE MODERATE (NEGATIVE); PH,URINE 5.5 PH (5.0-7.5); PROTEIN,URINE NEGATIVE (NEGATIVE); UROBILINOGEN,URINE 0.2 (NORMAL) E.U./dL (NORMAL)
[2023-10-29 18:10] LABS: CLARITY,URINE HAZY (CLEAR)
[2023-10-29 18:29] LABS: BACTERIA,URINE Rare /HPF (None Seen); SQUAMOUS EPITHELIAL CELL,UR NONE SEEN (<= Few)
[2023-10-29 20:00] VITALS: BP 176/99
== END 2023-10-29 19:51 | disposition home or self-care (01) ==
LOC: ED 15:57
DX: K59.00 Constipation, unspecified (principal); N39.0 Urinary tract infection, site not specified; G10 Huntington's disease
CPT/HCPCS: 81001; 87086; 99282; 99283; A9270; 81003

== ENCOUNTER 2023-11-07 14:33 | Emergency (ER) | payer MEDICARE ==
[2023-11-07 14:48] VITALS: BP 140/79; O2SAT 96
--- NOTE | 2023-11-07 16:45 | ED Physician Documentation ---
History of Present Illness - Stated complaint Stated Complaint: CONSTIPATION - Chief complaint Chief Complaint: General - Additonal information Additional information: 73-year-old male presents emergency department with concerns of constipation. Patient has advanced Parkinson's disease and struggles with constipation. Patient says he took his regular prescribed laxative and suppository today as scheduled but was concerned that he had not had a bowel movement in 4 hours. He was able to successfully have a bowel movement while waiting in the waiting room to be seen by primary care provider and is feeling significantly better no abdo favian pain no nausea vomiting. Prior to today last bowel movement was yesterday. PD PAST MEDICAL HISTORY - Past Medical History Past Medical History: Yes Cardiovascular: Hypertension Respiratory: None Endocrine/Autoimmune: None GI: None : None HEENT: None Psych: None Musculoskeletal: None Derm: None - Past Surgical History Past Surgical History: Yes General: Appendectomy Ortho: Other - Present Medications Home Medications: Ambulatory Orders Medication Instructions Recorded Confirmed Aspirin [Aspir-Low] 81 mg PO DAILY 08/26/15 10/12/23 Multivit-Min/Iron Fum/Folic AC 1 cap PO DAILY 08/26/15 10/12/23 [Ikuzh-Zbesphm-Vspyzekg Tablet] Tamsulosin [Flomax] 0.4 mg PO DAILY #20 cap 10/02/23 10/12/23 Docusate Sodium 100Mg Capsule 100 mg PO DAILY #20 cap 10/12/23 [Colace 100Mg Capsule] Tetrabenazine [Xenazine] 1 tab PO DAILY 10/12/23 10/12/23 cephALEXin [Keflex] 500 mg PO BID 5 Days #10 cap 10/29/23 polyethylene glycoL 3350 [Miralax] 17 gm PO DAILY 10 Days packet 10/29/23 polyethylene glycoL 3350(BULK) 17 gm PO DAILY PRN #1 each 10/29/23 [Miralax] - Allergies Allergies/Adverse Reactions: Allergies Allergy/AdvReac Type Severity Reaction Status Date / Time No Known Drug Allergies Allergy Verified 11/07/23 16:34 - Social History Does the pt smoke?: No Smoking Status: Never smoker Does the pt drink ETOH?: No Does the pt have substance abuse?: No - Immunizations Immunizations are current?: Yes - POLST Patient has POLST: No PD ED PE NORMAL - Vitals Vital signs reviewed: Yes - General General: Alert and oriented X 3, No acute distress, Well developed/nourished - Abdomen Abdomen: Normal bowel sounds, Soft, Non tender, Non distended, No organomegaly - Derm Derm: Normal color, Warm and dry, No rash Results - Vitals Vitals: Vital Signs - 24 hr 11/07/23 14:39 Temperature 36.6 C Heart Rate 100 Respiratory 16 Rate Blood Pressure 140/79 H O2 Saturation 96 Oxygen O2 Source Room air PD Medical Decision Making - ED course ED course: 73-year-old male presents emergency department for concerns of no bowel movement for 4 hours after receiving his suppository. He was able to successfully have a bowel movement while waiting to be seen by provider and feels safe to discharge at this point in time. Patient was taught signs of emergent conditions of when to report back to the emergency department for constipation versus obstipation. He understands he is with his son he is safe for discharge at this time return precautions given told to follow-up with primary care provider to discuss bowel meds and regimen. Departure - Departure Disposition: 01 Home, Self Care Clinical Impression: Constipation Instructions: ED Constipation Comments: Thank you for trusting us with your care. It appears that you have resolved your constipation on your own at this point in time you are safe to discharge follow-up with your primary care provider about medication adjustment for your chronic constipation. Please come back to the ER if you have gone several days without having a bowel movement nausea vomiting or severe abdominal pain. Forms: PCP List Discharge Date/Time: 11/07/23 16:53
== END 2023-11-07 16:53 | disposition home or self-care (01) ==
LOC: ED 14:33
DX: K59.09 Other constipation (principal); I10 Essential (primary) hypertension; G20.A1 Parkinson's disease without dyskinesia, without mention of fluctuations; Z79.82 Long term (current) use of aspirin
CPT/HCPCS: 99281; 99283